=== PATIENT | female | born 1955 | race Caucasian/White ===

== ENCOUNTER 2017-03-06 05:41 | Emergency (ER) | payer MEDICAID ==
[~2017-03-06] VITALS: Ht 170.2 cm; Wt 81.6 kg
[2017-03-06 06:08] VITALS: BP_SYST 160
--- NOTE | 2017-03-06 06:10 | NUR ---
Placed in room 7. To gown for exam. Side rails up.
[2017-03-06] MEDS ORDERED: PANT20TA2 PO (06:12)
[2017-03-06] MEDS ORDERED: GLIP5TAB13 PO (06:12)
[2017-03-06] MEDS ORDERED: GLU500 PO (06:12)
--- NOTE | 2017-03-06 06:20 | NUR ---
Patient alert and oriented x 4 came in the ER with a complaint of suprapubic burning pain which started at 0200. Patient also mentioned that she saw blood in her urine. Pain scale 7-8/10. Blood sugar 195, history of DM. No other complaints mentioned. No acute distress or SOB noted at this time.
[2017-03-06 06:42] LABS: BILIRUBIN,URINE NEGATIVE (NEGATIVE); CLARITY/URINE HAZY (CLEAR); COLOR,URINE YELLOW (YELLOW); GLUCOSE,URINE NEGATIVE (NEGATIVE); KETONES,URINE NEGATIVE (NEGATIVE); LEUKOCYTE ESTERASE ,URINE 2+ (NEGATIVE); NITRITE, URINE NEGATIVE (NEGATIVE); PH,URINE 6.5 (5.0-8.0); PROTEIN URINE 3+ (NEGATIVE); UROBILINOGEN,URINE 0.2 (0.2-1.0)
[2017-03-06 06:44] LABS: BLOOD, URINE 2+ (NEGATIVE)
[2017-03-06 06:48] LABS: BACTERIA,URINE MODERATE /HPF (None Seen); RBC,URINE >100 /HPF (0-3)
--- NOTE | 2017-03-06 07:13 | NUR ---
Patient given written and verbal discharge instructions and verbalizes understanding. ER MD discussed with patient the results and treatment provided. Given copies of tests performed in ER. Patient in stable condition. ID arm band removed. Rx of pyridium,cipro given. Patient educated on pain management and to follow up with PMD. Pain Scale 2 Opportunity for questions provided and answered.
[2017-03-06 07:15] VITALS: BP_SYST 158
== END 2017-03-06 07:15 | disposition home or self-care (01) ==
LOC: SED 05:41
DX: N39.0 Urinary tract infection, site not specified (principal); E11.9 Type 2 diabetes mellitus without complications; Z90.710 Acquired absence of both cervix and uterus
CPT/HCPCS: 81000-TC; 82962; 87086; 87186-TC; 99284

== ENCOUNTER 2022-11-02 07:12 | Day surgery (SDC) | payer OTHER ==
[~2022-11-02] VITALS: Ht 171.4 cm; Wt 59.9 kg
[~2022-11-02 07:12] MED LIST: CLINDAMYCIN PHOS 600 MG/ D5W 50 ML PREMIX IV ONE; GLIP5TAB13 PO; GLU500 PO; PANT20TA2 PO
[2022-11-02] MEDS ORDERED: ONDANSETRON HCL 4 MG/2 ML VIAL IVP ONE (09:45)
[2022-11-02] MEDS ORDERED: MIDAZOLAM HCL 5 MG/5 ML VIAL IVP ONE (09:45)
[2022-11-02] MEDS ORDERED: METOCLOPRAMIDE HCL 10 MG/2 ML VIAL IVP ONE (09:45)
[2022-11-02] MEDS ORDERED: SUGAMMADEX SODIUM 200 MG/2 ML VIAL IV ONE (09:45)
[2022-11-02] MEDS ORDERED: fentaNYL CITRATE 250 MCG/5 ML AMP IV ONE (09:45)
[2022-11-02] MEDS ORDERED: DEXAMETHASONE SOD PHOSPHATE 4 MG/ML VIAL IVP ONE (09:45)
[2022-11-02] MEDS ORDERED: KETOROLAC TROMETHAMINE 30 MG VIAL IVP ONE (09:45)
[2022-11-02] MEDS ORDERED: NS IRRIG SOLN 1000 ML IR ONE (09:45)
[2022-11-02] MEDS ORDERED: PROPOFOL 200MG/ 20ML VIAL (DIPRIVAN) IV ONE (09:45)
[2022-11-02] MEDS ORDERED: LR 1,000 ML IV.SOLN IV ONE (09:45)
[2022-11-02] MEDS ORDERED: HYDROmorphone 1 MG/ML INJ. CARTRIDGE IVP PRN (10:30)
[2022-11-02] MEDS ORDERED: HYDROmorphone 1 MG/ML INJ. CARTRIDGE ONE (12:07)
[2022-11-02] MEDS ORDERED: ONDANSETRON 4 MG ODT TAB PO PRN (12:30)
[2022-11-02] MEDS ORDERED: ACETAMINOPHEN 500 MG TABLET PO PRN (12:30)
[2022-11-02] MEDS ORDERED: HYDROcodone/ACETAMIN 5-325 MG TAB (NORCO/ VICODIN) PO PRN (12:30)
[2022-11-02] MEDS ORDERED: ONDANSETRON HCL 4 MG/2 ML VIAL IVP PRN (12:30)
[2022-11-02 15:32] VITALS: BP_SYST 130
== END 2022-11-02 14:05 | disposition home or self-care (01) ==
LOC: SDS 07:12 → SMU 07:13 → SDS 14:05
PROVIDERS: ATTEND Otolaryngology
DX: Q18.1 Preauricular sinus and cyst (principal); E11.9 Type 2 diabetes mellitus without complications; J45.909 Unspecified asthma, uncomplicated; Z79.899 Other long term (current) drug therapy; Z20.822 Contact with and (suspected) exposure to COVID-19
CPT/HCPCS: 36415; 21013; 82962; 88305; U0003; J3490 ×2; J1100; J1885; J2765; J2250; J2405; J2704; J3010; J1170; J7120